=== PATIENT | female | born 1965 | race Caucasian/White ===

== ENCOUNTER 2024-10-03 16:02 | Inpatient (IN) | payer OTHER, SELFPAY ==
[2024-10-03] VITALS (13 sets, daily range): BP systolic 82–107; BP diastolic 49–73; BMI 28.2; BMI 28.1
--- NOTE | 2024-10-03 09:55 | EDRN ---
pt has never been here before history obtained by EMS and chart from [facility]
58 yr old female brought in from [facility] by ems for fever
pt is unresponsive at this time.
pt was at [facility] for brain surgery and was at [facility] for rehab.
caretakers at [place] [facility] she has fever and is unresponsive and usually talks.
upon arrival pt is not responding. pulse ox on room air 91 % pt placed on 3liters nasal cannula pulse ox increased to 96%
pt has 20g IV in right hand labs and bld culture sent
pt straight cath for urine and specimen sent
pt incont several times of formed stool.
pts rectal temp 100.6. attempted to give tylenol supp pt pooped it out.
pt has tube feeding.
[2024-10-03 10:05] LABS: Hematocrit 31.3 % (37.0-47.0); Hemoglobin 9.7 g/dL (12.0-16.0); Mean Corp Hgb Conc. 31.0 g/dL (33.0-37.0); Mean Corpuscular Volume 86.9 fL (81.0-99.0); Nucleated Red Blood Cells % 0.2 %; Platelet Count 203 10^3/uL (130-400); Red Cell Dist. Width 17.0 % (11.5-14.5)
[2024-10-03 10:06] LABS: Urine Character Clear (Clear)
--- NOTE | 2024-10-03 10:22 | ED.GENMED ---
History of Present Illness
General
Chief Complaint: Fever
Source: patient
Exam Limitations: clinical condition
Time Seen by Provider: 10/03/24 10:14
History of Present Illness
History of Present Illness:
See MDM
Past History
Past History
ED Past Medical History: HTN
ED Past Surgical History: Other (Brain)
Social History
Tobacco: Non-smoker
Alcohol: None
Phy Exam
Physical Exam
Physical Exam:
See MDM
Course
Orders/Labs/Results
Orders:
Orders
10/03/24 09:25
Electrocardiogram (*1) Urgent
Reason for Study: Fatigue / Weakness
EKG- Treatment ONCE
10/03/24 09:31
Complete Blood Count/With Diff Urgent
Comprehensive Metabolic Panel Urgent
Lactic Acid Urgent
Urinalysis Reflex To Culture Urgent
Date Specimen was Collected: 10/03/24
Time Specimen was Collected: 09:30
Urine Microscopic Reflex Cult Urgent
10/03/24 09:32
Blood Culture Urgent
JUSTIN Source: Blood/Venous
Specimen Description:
Date Specimen was Collected: 10/03/24
Time Specimen was Collected: 09:30
10/03/24 10:18
CT Head W/o Iv Contrast Urgent
Comment: hx recent brain surgery
Reason For Exam: altered
Acetaminophen 1000MG/100Ml [Ofirmev] 1,000 mg in 100 ml IV ONCE
Acetaminophen IV Indication:: ED Narcotic Naive Pt-ONCE
CR Chest Portable - 1 View Urgent
Comment:
Reason For Exam: fever
Reason Study Needs to be Portable: Patient Unstable
10/03/24 10:55
COVID-19 Antigen Urgent
Source: Nasal Swab
Influenza A+B Rapid Molecular Urgent
JUSTIN Source: Nasal Swab
Specimen Description:
10/03/24 11:25
Blood Culture Urgent
JUSTIN Source: Blood/Venous
Specimen Description:
10/03/24 14:56
NSS 1000mL Bolus over 1 hr 0.9% Sodium Chloride 1000 ml [Nss] 1,000 ml IV BOLUS
Abnormal Lab Results
10/03/24
09:31
RBC 3.60 L 10^6/uL
(4.20-5.40)
Hgb 9.7 L g/dL
(12.0-16.0)
Hct 31.3 L %
(37.0-47.0)
MCH 26.9 L pg
(27.0-31.0)
MCHC 31.0 L g/dL
(33.0-37.0)
RDW 17.0 H %
(11.5-14.5)
MPV 10.7 H fL
(7.4-10.4)
Absolute Monos (auto) 0.7 H 10^3/uL
(0.1-0.6)
Sodium 128 L mmol/L
(135-145)
Chloride 97 L mmol/L
(98-107)
Creatinine 0.2 L mg/dL
(0.6-1.0)
Glucose 160 H mg/dl
(70-99)
AST 43 H U/L
(14-36)
ALT 37 H U/L
(0-35)
Alkaline Phosphatase 148 H U/L
(38-126)
Urine Urobilinogen 3+ A
(Neg - 1+)
Urine Bacteria (Reflex) Few A
(Negative)
Urine Albumin (Reflex) 1+ A
(Neg - Trace)
10/03/24 09:31
10/03/24 09:31
Vital Signs
Initial and Last Documented VS:
Initial Vital Signs
BP
102/68
10/03/24 09:41
Last Documented Vital Signs
Temp Pulse Resp BP Pulse Ox
100.6 F H 91 22 85/49 98
10/03/24 09:44 10/03/24 14:15 10/03/24 14:15 10/03/24 14:00 10/03/24 14:15
MDM/Problems Addressed
Differential Diagnosis Includes:
Note:
CHIEF COMPLAINT(S)
Altered mental status and fever.
HISTORY OF PRESENT ILLNESS
The patient is a 58-year-old female who was recently transferred from [facility]. She has a history of brain surgery, which reportedly was initially thought to involve a tumor, but current indications suggest a hemorrhagic event instead.
Although she is currently non-verbal, the patient is able to move her arms. On initial assessment, she presented with a fever of 100.6�F measured rectally. Hypotension was noted with a blood pressure of 98/68 mmHg, and she was administered a 500 mL
bolus of intravenous fluids. Laboratory tests revealed a low hemoglobin level of 9.7 g/dL. Blood cultures have been sent, and an electrocardiogram is pending. The patients [place] Coma Scale is low, as she is only opening her eyes in response to
verbal stimuli. A head CT scan is planned to evaluate for any intracranial pathology. Will obtain urinalysis and chest x-ray to search for infectious etiology. Will obtain COVID and flu testing as well
PHYSICAL EXAM
General: Lying in bed. Intermittently opening her eyes. Intermittent hand movement
Skin: Warm, dry.
Head: Normocephalic
Neck: Appears supple, trachea midline.
Eyes, Ears, Nose, Mouth, and Throat: Dry mucous membranes
Cardiovascular: No signs of cyanosis
Respiratory: Respirations are non-labored.
Abdomen: Non-distended. Soft. Palpation does not appear to cause discomfort
Musculoskeletal: No deformities
Neurological: Intermittently opening her eyes
Psychiatric: flat affect
PLAN
1. Perform portable CT scan of the head to evaluate for acute intracranial processes.
2. Administer IV fluids to maintain blood pressure and hydration status.
3. Obtain COVID-19 and influenza testing given the presence of fever.
4. Monitor vital signs and mental status closely.
5. Initiate consultation with Neurology for further evaluation and management given the history of brain surgery and potential hemorrhagic event.
DIFFERENTIAL DIAGNOSIS
The Differential Diagnosis includes, in no particular order and is not limited to:
1. Intracranial hemorrhage
2. Post-surgical complications
3. Septicemia
4. Meningitis or encephalitis
5. Severe dehydration
6. Hypovolemic shock
7. Sepsis-related altered mental status
8. Medication effects (e.g., sedatives)
9. COVID-19 infection
10. Influenza infection
10/03/24 - 13:23
Spoke with the patients cousin, Shannan ([phone]), who expressed consideration of palliative care or hospice. Plan to consult with Dr. Ospina, the patients neurosurgeon, regarding recent medical history including the removal of malignant
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
Soon after this, I discussed the case with her neurosurgeon Dr. Ospina. She had indicated that treating the active infection will likely not change patient's prognosis and agrees with pursuing hospice
SUMMARY OF ENCOUNTER
The patient, a 58-year-old female with a history of recent brain surgery initially suspected to involve a tumor, but later identified as a hemorrhagic event, was seen in the emergency department due to altered mental status and fever. She presented
with a fever of 100.6�F, hypotension, and altered mental status. Initial management included administration of intravenous fluids. Blood cultures were sent, and the patients low hemoglobin and elevated lactate levels noted. Given the complexity of
her case, her prognosis, and previous medical history, discussions were held about palliative care and hospice services.
MANAGEMENT OF THE PATIENTS CARE WAS DISCUSSED WITH
The case was discussed with Dr. Ospina, the patients neurosurgeon, regarding the potential transfer to a different facility versus admission for hospice care. The outcome of treating a suspected brain infection was deliberated; however, it was
concluded that treatment would not substantially alter the patients prognosis. Additionally, discussions were held with the patients friend and cousin, Shannan, who was in agreement with the plan for hospice care.
PLAN
The plan includes admitting the patient for hospice consultation, with the potential aim for home hospice care.
INDEPENDENT REVIEW OF LABS AND INTERPRETATION OF TESTS
My independent review of the patients laboratory tests revealed a low hemoglobin level of 9.7 g/dL and an elevated lactate level of 86 mg/dL.
MEDICAL DECISION MAKING
- Number and Complexity of Problems Addressed: Chronic conditions affecting care include recent brain surgery and brain hemorrhagic event. Differential diagnosis includes intracranial hemorrhage, post-surgical complications, septicemia, meningitis
or encephalitis, severe dehydration, hypovolemic shock, sepsis-related altered mental status, medication effects, COVID-19 infection, and influenza infection.
- Data:
Category 1
Independently, I reviewed lab tests showing low hemoglobin and elevated lactate levels.
Category 3
Discussion of management was held with Dr. Ospina, neurosurgeon, and the patients friend, Shannan, about hospice care and palliative consultation.
DIAGNOSIS
1. Intracranial hemorrhage - ICD-10: I61
2. Sepsis-related altered mental status - ICD-10: R41.82
3. Fever, unspecified - ICD-10: R50.9
4. Possible brain infection - ICD-10: G93.9
*Pulse Oximetry
SaO2: 96
Oxygen Mode of Delivery: Room air
Patient hypoxic: no
*Critical Care Note
Total Time (30-74mins, 75-104mins- exclusive of procedures): Not Applicable
ED Attending Note
-
Portions of this chart may have been created with voice recognition software.� Occasional wrong word or��sound alike� substitutions may have occurred due to the inherent limitations of voice recognition software.
Discharge Plan
Departure
Patient Disposition: Admit
Date of Disposition: 10/03/24
Time of Disposition: 14:58
Admit to: Med/Surg
Presentation/result/management discussed w/ accepting MD/DO: Hospitalist
Discharge Problem:
Fever, Adult failure to thrive
Prescriptions:
No Action
acetaminophen [Tylenol] 325 mg Tablet
650 mg feeding tube Q4HPRN PRN (Reason: mild pain)
cyanocobalamin (vitamin B-12) 100 mcg Tablet
100 mcg feeding tube DAILY
polyethylene glycol 3350 [Miralax] 17 gram Powder In Packet
17 g PO DAILYPRN PRN (Reason: constipation)
thiamine HCl (vitamin B1) 100 mg Tablet
100 mg feeding tube DAILY
sennosides [senna] 8.8 mg/5 mL Syrup
17.6 mg feeding tube DAILYPRN PRN (Reason: constiaption)
modafinil 200 mg Tablet
200 mg feeding tube BID
magnesium hydroxide [Milk of Magnesia] 400 mg/5 mL Suspension
2,400 mg PO DAILYPRN PRN (Reason: if no bm by 3rd day)
dexamethasone 2 mg Tablet
2 mg feeding tube BID
bisacodyl [Dulcolax (bisacodyl)] 10 mg Suppository
10 mg FL DAILYPRN PRN (Reason: if no bm aftr mom)
insulin NPH isoph U-100 human 100 unit/mL Suspension
6 unit SC BID
Fleet Enema 19-7 gram/118 mL Enema
118 ml FL DAILYPRN PRN (Reason: if no bm aftr dulocolax)
docusate sodium [Colace] 100 mg Capsule
100 mg PO BID
folic acid 1 mg Tablet
1 mg feeding tube DAILY
heparin (porcine) 5,000 unit/mL Solution
5,000 unit SC Q12H
Theragran Liquid
15 ml feeding tube DAILY
enoxaparin [Lovenox] 80 mg/0.8 mL Syringe
80 mg SC BID
insulin lispro 100 unit/mL Insulin Pen
1 sliding scale dose SC AC
Rx Instructions:
151-200=2unit, 201-250=6unit, 251-300=8units
lansoprazole 30 mg Tablet,Disintegrat, Delay Rel
30 mg feeding tube DAILY
levetiracetam [Keppra] 100 mg/mL Solution
500 mg feeding tube BID
acetaminophen 325 mg/10.15 mL Solution
650 mg feeding tube Q8HPRN PRN (Reason: fever/mild pain)
baclofen 5 mg Tablet
2.5 mg feeding tube BID
Referrals:
Alessio Rose MD [Family Provider]
Interventions
Interventions:
*Risk Screen - Suicide Last Done: 10/03/24 09:44
*General Assessment Last Done: 10/03/24 09:44
*Neglect/Abuse Screening Last Done: 10/03/24 09:44
*ED- Fall Risk Assessment Last Done: 10/03/24 09:44
*ED COVID-19 Vaccine History Last Done: 10/03/24 09:44
ED- Neurological Assessment Last Done: 10/03/24 10:10
ED-Skin Assessment Last Done: 10/03/24 10:10
Discharge Date and Time
Print Language: GIBRALTARIAN
[2024-10-03 10:24] LABS: ALT (SGPT) 37 U/L (0-35); AST (SGOT) 43 U/L (14-36); Albumin 3.5 g/dl (3.5-5.0); Alkaline Phosphatase 148 U/L (38-126); Blood Urea Nitrogen 16 mg/dl (7-17); Calcium 9.1 mg/dl (8.4-10.2); Carbon Dioxide 26 mmol/L (22-30); Chloride 97 mmol/L (98-107); Estimated Creatinine Clearance 95 ml/min; Glucose 160 mg/dl (70-99); Potassium 4.4 mmol/L (3.5-5.1); Sodium 128 mmol/L (135-145); Total Protein 6.5 g/dl (6.3-8.2); eGFR > 60.00
[2024-10-03 10:46] LABS: Urine Urothelial Cell 0-2 /LPF (FEW)
[2024-10-03 10:47] LABS: Urine Red Blood Cell 0-2 /HPF (0-2); Urine White Cell 0-2 /HPF (0-5)
[2024-10-03] MEDS: OFIRMEV 100 IV (10:59)
[2024-10-03 11:19] LABS: COVID-19 Antigen Negative (Negative)
[2024-10-03] MEDS: NSS 1000 IV (13:00)
--- NOTE | 2024-10-03 15:52 | HPS.HSE ---
Family Physician
-
Family Physician: Alessio Rose
Chief Complaint
-
Comfort care, sepsis secondary to EMAIL MARKETER infection
History of Present Illness
Ms. Gaytan is a 58-year-old female medical history of IDDM and melanoma with brain metastases (status post neurosurgical resection, subsequent hemorrhagic event and right SUPERVISOR STEEL DIVISION shunt) who presented from her living facility ([facility]) due to
fever. The patient is nonverbal but is able to blink and move arms. She is n.p.o. with PEG tube. She has no living biological family members but her close friend Shannan serves as her advocate and has been able to provide information for HPI.
Reportedly the patient has recently been considered for transition to hospice care but had not yet done so. Shannan reports postsurgical complications and that the patient has been clinically deteriorating. Patient was febrile in the ED with a T of
100.6 �F. CT imaging of her brain showed postsurgical changes and possible empyema. ED physician discussed these findings with neurosurgery who felt that surgical intervention would not significantly improve her outcomes. Patient's advocate,
Shannan, decided that in this instance the patient would have preferred comfort care/hospice. Patient has been admitted for comfort care and hospice evaluation.
Medical History
Past Medical History
Past Medical History: Reports IDDM and Other
Additional Past Medical History:
Melanoma with brain metastases
Past Surgical History: Reports Brain (Resection of metastatic melanoma from brain, SUPERVISOR STEEL DIVISION shunt)
Social History
Unable to obtain full social history at this time due to: Patient Non-verbal
Family History
Family History: Not pertinent
Allergies / Home Medications
Allergies reflects when Allergies were last updated in [facility].
Home Medications with original date entered in [facility]
Allergy/Medication List:
Allergies
Allergy/AdvReac Type Severity Reaction Status Date / Time
bee pollen Allergy Unknown Verified 10/03/24 09:53
Home Medications
acetaminophen 325 mg tablet (Tylenol) 650 mg feeding tube Q4HPRN PRN mild pain 10/03/24
acetaminophen 325 mg/10.15 mL oral solution 650 mg feeding tube Q8HPRN PRN fever/mild pain 10/03/24
baclofen 5 mg tablet 2.5 mg feeding tube BID 10/03/24
bisacodyl 10 mg rectal suppository (Dulcolax (bisacodyl)) 10 mg FL DAILYPRN PRN if no bm aftr mom 10/03/24
cyanocobalamin (vitamin B-12) 100 mcg tablet 100 mcg feeding tube DAILY 10/03/24
dexamethasone 2 mg tablet 2 mg feeding tube BID 10/03/24
docusate sodium 100 mg capsule (Colace) 100 mg PO BID peg-tube 10/03/24
enoxaparin 80 mg/0.8 mL subcutaneous syringe (Lovenox) 80 mg SC BID 10/03/24
folic acid 1 mg tablet 1 mg feeding tube DAILY 10/03/24
heparin (porcine) 5,000 unit/mL injection solution 5,000 unit SC Q12H 10/03/24
insulin NPH isoph U-100 human 100 unit/mL subcutaneous suspension 6 unit SC BID 10/03/24
insulin lispro 100 unit/mL subcutaneous pen 1 sliding scale dose SC AC 10/03/24
lansoprazole 30 mg delayed release,disintegrating tablet 30 mg feeding tube DAILY 10/03/24
levetiracetam 100 mg/mL oral solution (Keppra) 500 mg feeding tube BID 10/03/24
magnesium hydroxide 400 mg/5 mL oral suspension (Milk of Magnesia) 2,400 mg PO DAILYPRN PRN if no bm by 3rd day 10/03/24
modafinil 200 mg tablet 200 mg feeding tube BID 10/03/24
polyethylene glycol 3350 17 gram oral powder packet (Miralax) 17 g PO DAILYPRN PRN constipation 10/03/24
sennosides 8.8 mg/5 mL oral syrup (senna) 17.6 mg feeding tube DAILYPRN PRN constiaption 10/03/24
sodium phosphates 19 gram-7 gram/118 mL enema (Fleet Enema) 118 ml FL DAILYPRN PRN if no bm aftr dulocolax 10/03/24
therapeutic multivitamin 15 ml feeding tube DAILY 10/03/24
thiamine HCl (vitamin B1) 100 mg tablet 100 mg feeding tube DAILY 10/03/24
Review of Systems
-
Unable to obtain full review of systems at this time due to: Patient Non-verbal
Physical Exam
Vital Signs
Vital Signs
Temp Pulse Resp BP Pulse Ox
100.6 F H 92 23 99/63 98
10/03/24 09:44 10/03/24 15:15 10/03/24 15:15 10/03/24 15:00 10/03/24 15:15
Physical Exam
General: Appears Chronically Ill
Laboratory Results
-
10/03/24 09:31
10/03/24 09:31
Laboratory Results
Lactic Acid 1.6 mmol/L (0.7-2.0) 10/03/24 09:31
Total Bilirubin 0.6 mg/dl (0.2-1.3) 10/03/24 09:31
AST 43 U/L (14-36) H 10/03/24 09:31
ALT 37 U/L (0-35) H 10/03/24 09:31
Alkaline Phosphatase 148 U/L (38-126) H 10/03/24 09:31
Impression/Plan
-
General: Chronically ill-appearing, nonverbal
HEENT: Well-healed craniotomy scars, SUPERVISOR STEEL DIVISION shunt
Respiratory: Clear and Non Labored Respirations
Cardiac: S1/S2 and Regular Rhythm; No Rub or Gallop
GI: Soft, PEG tube in place, laparoscopic port scars clean dry intact
Musculoskeletal: No Edema, no deformity
Skin: Warm and dry
: NO Leblanc
Neuro: Opens eyes to voice, not meaningfully interactive, no tremor
Psych: Unable to assess
Ms. Gaytan is a 58-year-old female medical history of IDDM and melanoma with brain metastases (status post neurosurgical resection, subsequent hemorrhagic event and right SUPERVISOR STEEL DIVISION shunt) who presented from her living facility ([facility]) due to
fever. The patient is nonverbal but is able to blink and move arms. She is n.p.o. with PEG tube. She has no living biological family members but her close friend Shannan serves as her advocate and has been able to provide information for HPI.
Reportedly the patient has recently been considered for transition to hospice care but had not yet done so. Shannan reports postsurgical complications and that the patient has been clinically deteriorating. Patient was febrile in the ED with a T of
100.6 �F. CT imaging of her brain showed postsurgical changes and possible empyema. ED physician discussed these findings with neurosurgery who felt that surgical intervention would not significantly improve her outcomes. Patient's advocate,
Shannan, decided that in this instance the patient would have preferred comfort care/hospice. Patient has been admitted for comfort care and hospice evaluation.
Comfort care:
- Comfort measures initiated
- Discontinued life-sustaining measures
- Hospice consulted, evaluation pending
DVT prophylaxis: None, comfort measures
CODE STATUS: DNR, confirmed with patient's advocate, Shannan ([phone]) who says she is available anytime
Total time spent on today's encounter was 58 minutes
--- NOTE | 2024-10-03 17:00 | HOSPNOTE ---
Spoke with family and they are in agreement with comfort measures. Patient will be started on a morphine drip. We will continue to follow.
--- NOTE | 2024-10-03 18:00 | PTCARENOTE ---
10/03- Patient transferred and oriented to unit without issue. Patient immobile, bedrest and nonverbal. Cannot obtain history or answer Admissions questions at this time. Daughter is Shannan and ASHLEY as per record. MedSurg. Setting up Comfort
Measures as ordered.
[2024-10-04 08:07] VITALS: BP 122/76
--- NOTE | 2024-10-04 11:11 | HOSPNOTE ---
Addendum entered by Louise Stockton RN 10/04/24 17:33:
Patients insurance was initially terminated as of 09/27/24. Insurance was reinstated as of 10/04/24. Upon review of insurance coverage, patient is under cobra and has a deductible of 6600.00 before insurance will then cover at 70% with 30% co-pay as [facility]ice is considered out of network. Patient has not met any of the deductible currently. Spoke to advocate Shannan and updated her with this information. She is going to do some research this evening and she will be in touch with hospice tomorrow.
She is not sure that patient has the funds available to meet the deductible ect. We will continue to follow and provide more information as it becomes available. At this time, patient will remain on comfort.
Original Note:
Spoke with family and the plan is for patient to go home with cousin as primary caregiver [address] [facility] [id number]. Shannan [place] [phone]. Transport will be scheduled for 11 am and once patient is home will admit onto hospice.
Equipment was ordered for delivery today. OOH DNR needed on chart. CM and Attending aware of plan.
--- NOTE | 2024-10-04 12:25 | CM ---
Initial assessment completed. Patient is a 58-year-old female medical history of IDDM and melanoma with brain metastases (status post neurosurgical resection, subsequent hemorrhagic event and right HOSPITALITY HOUSEKEEPER shunt) who presented from her living facility
([facility]) due to fever.
Patient is a LTC resident at [facility]. Pagt
--- NOTE | 2024-10-04 12:27 | CM ---
Initial assessment completed. Patient is a 58-year-old female medical history of IDDM and melanoma with brain metastases (status post neurosurgical resection, subsequent hemorrhagic event and right AEROSPACE MANAGER shunt) who presented from her living facility
([facility]) due to fever.
Patient is a LTC resident at [facility]. Patient is nonverbal. Patient is n.p.o. with PEG tube.
consulted for hospice evaluation. Per consult, patient's advocate, Shannan, agreeable to comfort care at this time
hospice referral placed. Per [facility]/ repairer finished metal, plan is for patient to discharge to her cousin's home in [place] tomorrow. hospice will sign on. Equipment ordered and will be delivered today.
Ambulance transport scheduled for 11 am
OOH DNR on chart
Updated hospitalist on the plan for tomorrow
Updated [facility], will make her team aware
Cousin's address:
[address] [address]
Plan: D/c to cousin's home tomorrow. Hospice will sign on
11 am ambulance transport
[2024-10-04] MEDS: MORPHINE SULFATE 1 MG IV (13:05)
--- NOTE | 2024-10-04 13:29 | W.PN.HOSP.TC ---
Today's Communication/Plan
-
Assessment / Plan
Assessment / Plan
General: Chronically ill-appearing, nonverbal
HEENT: Well-healed craniotomy scars, AUTOMOBILES SALESPERSON shunt
Respiratory: Clear and Non Labored Respirations
Cardiac: S1/S2 and Regular Rhythm; No Rub or Gallop
GI: Soft, PEG tube in place, laparoscopic port scars clean dry intact
Musculoskeletal: No Edema, no deformity
Skin: Warm and dry
: NO Leblanc
Neuro: Opens eyes to voice, no tremor
Psych: Unable to assess
Ms. Gaytan is a 58-year-old female medical history of IDDM and melanoma with brain metastases (status post neurosurgical resection, subsequent hemorrhagic event and right AUTOMOBILES SALESPERSON shunt) who presented from her living facility ([facility]) due to
fever. The patient is nonverbal but is able to blink and move arms. She is n.p.o. with PEG tube. She has no living biological family members but her close friend Shannan serves as her advocate and has been able to provide information for HPI.
Reportedly the patient has recently been considered for transition to hospice care but had not yet done so. Shannan reports postsurgical complications and that the patient has been clinically deteriorating. Patient was febrile in the ED with a T of
100.6 �F. CT imaging of her brain showed postsurgical changes and possible empyema. ED physician discussed these findings with neurosurgery who felt that surgical intervention would not significantly improve her outcomes. Patient's advocate,
Shannan, decided that in this instance the patient would have preferred comfort care/hospice. Patient has been admitted for comfort care and hospice evaluation.
Comfort care:
- Comfort measures initiated
- Discontinued life-sustaining measures
- Hospice consulted, planning transition to home hospice tomorrow 10/05
DVT prophylaxis: None, comfort measures
CODE STATUS: DNR, confirmed with patient's advocate, Shannan ([phone]) who says she is available anytime
Anticipated Discharge: 24 - 48 hours
Subjective/Interval History
-
Date of Service: October 04, 2024
Patient was seen and examined at bedside this morning. Her friends were also present. Patient appears more comfortable than when she was first admitted. Opens eyes to voice to acknowledge when we are speaking to her or about her. Home hospice
placement pending.
Objective Data
-
Vital Signs:
Vital Signs
Temp Pulse Resp BP Pulse Ox
98.5 F 117 16 122/76 93
10/04/24 08:07 10/04/24 08:07 10/04/24 08:07 10/04/24 08:07 10/04/24 08:07
Review of Systems
-
Unable to obtain full review of systems at this time due to: Patient Non-verbal
Physical Exam
-
General: Appears Chronically Ill
[2024-10-04 15:19] VITALS: BP 124/70
[2024-10-04] MEDS: TYLENOL ORAL SOLUTION 650 MG TUBE (20:14)
[2024-10-05 00:14] VITALS: BP 112/69
[2024-10-05 07:00] VITALS: BP 116/70
--- NOTE | 2024-10-05 08:24 | W.DCSUMMARY ---
Discharge Summary
Discharge Data
Date of Admission: 10/03/24
Date of Discharge: 10/05/24
Total time spent discharging patient (in min): 42
-
Pending Results: No
Hospital Course
Ms. Gaytan is a 58-year-old female medical history of IDDM and melanoma with brain metastases (status post neurosurgical resection, subsequent hemorrhagic event and right [employer] shunt) who presented from her living facility ([facility]) due to
fever. The patient is nonverbal but is able to blink and move arms. She is n.p.o. with PEG tube. She has no living biological family members but her close friend Shannan serves as her advocate and has been able to provide information for HPI.
Reportedly the patient has recently been considered for transition to hospice care but had not yet done so. Shannan reports postsurgical complications and that the patient has been clinically deteriorating. Patient was febrile in the ED with a T of
100.6 �F. CT imaging of her brain showed postsurgical changes and possible empyema. ED physician discussed these findings with neurosurgery who felt that surgical intervention would not significantly improve her outcomes. Patient's advocate,
Shannan, decided that in this instance the patient would have preferred comfort care/hospice. Patient was admitted for comfort care and hospice evaluation.
Comfort measures were initiated. She was evaluated by the hospice team and arrangements were made for transition to home hospice to be initiated 10/05/2024.
General: Chronically ill-appearing, nonverbal
HEENT: Well-healed craniotomy scars, [employer] shunt
Respiratory: Clear and Non Labored Respirations
Cardiac: S1/S2 and Regular Rhythm; No Rub or Gallop
GI: Soft, PEG tube in place, laparoscopic port scars clean dry intact
Musculoskeletal: No Edema, no deformity
Skin: Warm and dry
: NO Leblanc
Neuro: Opens eyes to voice, no tremor
Psych: Unable to assess
Discharge Plan
-
Patient Disposition: Home with Hospice
Discharge Diagnosis/Procedures: Central nervous system infection, bacteremia, comfort care
Referrals:
Alessio Rose MD [Family Provider]
Prescriptions:
Continued
acetaminophen [Tylenol] 325 mg Tablet
650 mg feeding tube Q4HPRN PRN (Reason: mild pain)
cyanocobalamin (vitamin B-12) 100 mcg Tablet
100 mcg feeding tube DAILY
polyethylene glycol 3350 [Miralax] 17 gram Powder In Packet
17 g PO DAILYPRN PRN (Reason: constipation)
thiamine HCl (vitamin B1) 100 mg Tablet
100 mg feeding tube DAILY
sennosides [senna] 8.8 mg/5 mL Syrup
17.6 mg feeding tube DAILYPRN PRN (Reason: constiaption)
modafinil 200 mg Tablet
200 mg feeding tube BID
magnesium hydroxide [Milk of Magnesia] 400 mg/5 mL Suspension
2,400 mg PO DAILYPRN PRN (Reason: if no bm by 3rd day)
dexamethasone 2 mg Tablet
2 mg feeding tube BID
bisacodyl [Dulcolax (bisacodyl)] 10 mg Suppository
10 mg AK DAILYPRN PRN (Reason: if no bm aftr mom)
insulin NPH isoph U-100 human 100 unit/mL Suspension
6 unit SC BID
Fleet Enema 19-7 gram/118 mL Enema
118 ml AK DAILYPRN PRN (Reason: if no bm aftr dulocolax)
docusate sodium [Colace] 100 mg Capsule
100 mg PO BID
folic acid 1 mg Tablet
1 mg feeding tube DAILY
heparin (porcine) 5,000 unit/mL Solution
5,000 unit SC Q12H
therapeutic multivitamin Liquid
15 ml feeding tube DAILY
enoxaparin [Lovenox] 80 mg/0.8 mL Syringe
80 mg SC BID
insulin lispro 100 unit/mL Insulin Pen
1 sliding scale dose SC AC
Rx Instructions:
151-200=2unit, 201-250=6unit, 251-300=8units
lansoprazole 30 mg Tablet,Disintegrat, Delay Rel
30 mg feeding tube DAILY
levetiracetam [Keppra] 100 mg/mL Solution
500 mg feeding tube BID
acetaminophen 325 mg/10.15 mL Solution
650 mg feeding tube Q8HPRN PRN (Reason: fever/mild pain)
baclofen 5 mg Tablet
2.5 mg feeding tube BID
Discharge Orders:
Discharge Patient (As Directed); Ordered 10/05/24
Ordered By: Sid Swain
Discharge Date and Time
Print Language: GREENLANDIC
--- NOTE | 2024-10-05 10:24 | CM ---
CM reviewed chart, patient for discharge today, per hospice, transport time changed to 12:00. Call to patients advocate, Shannan, aware of transport time. Update to Hospital and Nurse. CM will continue to follow for all discharge planning needs.
Cousin's address:
[address] [id number]
Plan: D/c to cousin's home, 12:00 p.m. ambulance transport- Hospice will sign on
Hospice
== END 2024-10-05 13:02 | disposition hospice, home (50) | DRG 871 ==
LOC: 4 WEST ACU 16:02
PROVIDERS: ADMITTING PHYSICIAN Internal Medicine; EMERGENCY PHYSICIAN Student in an Organized Health Care Education/Training Program; FAMILY PHYSICIAN Internal Medicine
DX: A41.9 Sepsis, unspecified organism (principal); G06.0 Intracranial abscess and granuloma; E87.20 Acidosis, unspecified; C79.31 Secondary malignant neoplasm of brain; Z51.5 Encounter for palliative care; I10 Essential (primary) hypertension; E11.9 Type 2 diabetes mellitus without complications; C43.9 Malignant melanoma of skin, unspecified; D63.0 Anemia in neoplastic disease; R62.7 Adult failure to thrive; Z66 Do not resuscitate; Z98.2 Presence of cerebrospinal fluid drainage device; Z93.1 Gastrostomy status; Z85.820 Personal history of malignant melanoma of skin; Z79.4 Long term (current) use of insulin; Z86.79 Personal history of other diseases of the circulatory system
CPT/HCPCS: 70450; 71045; 80053; 81003; 81015; 83605; 85025; 87040; 87077; 87147; 87150; 87154; 87186; 87205; 87502; 87811; 93005; 99285